=== PATIENT | male | born 2000 | race Caucasian/White ===

== ENCOUNTER 2021-05-20 07:27 | Observation (INO) | payer BC ==
[~2021-05-20] VITALS: Ht 182.9 cm; Wt 60.9 kg
[2021-05-20] MEDS ORDERED: DULOXETINE HCL60 MG PO (07:40)
[2021-05-20] MEDS ORDERED: CYCLOBENZAPRINE10 MG PO (07:40)
[2021-05-20] MEDS ORDERED: GABAPENTIN300 MG PO (07:40)
[2021-05-20] MEDS ORDERED: DICLOFENAC SODI75 MG PO (07:40)
--- NOTE | 2021-05-20 13:30 | NUR ---
PT REPORTING PAIN 09/27. IV DILAUDID ADMINSTERED. PRE-PROCEDURE CHECK LIST COMPLETED. CALL LIGHT IN REACH
--- NOTE | 2021-05-20 14:02 | NUR ---
PT ARRIVED TO FLOOR VIA STRETCHER. PT TRANSFERS SELF TO BED. LR BOLUS STARTED. MAINTAINENCE FLUIDES ON STANDBY. ASSESSMENT COMPLETED. ABDOMEN IS TENDER, AND PT REPORTS SOME BLOATING. PAIN AT 7/10. DILAUDID ADMISNTERED. CONSENT SIGNED. CALL LIGHT IN REACH
--- NOTE | 2021-05-20 14:50 | NUR ---
EDUCATED PT ON PRE-SURGICAL HIBICLEANS SHOWER, SHOWER SET UP, PT EDUCATED THAT SHOWER NEEDS TO BE COMPLETED BY 1600.
--- NOTE | 2021-05-20 15:23 | NUR ---
ROUNDED ON PT TO ASSESS PAIN. REPROTS PAIN 2/10 NOW. HELEN NEEDS. POLAN OF HIBACLENSE SHOWER BEFORE 1600. PT UNDERSTANDS POC.
--- NOTE | 2021-05-20 16:06 | NUR ---
pt did pre-surgical shower and provided a ua.
--- NOTE | 2021-05-20 16:12 | NUR ---
PAIN WELL CONTROLLED. PT ASSISTED TO HIBACLENSE SHOWER.
--- NOTE | 2021-05-20 17:20 | NUR ---
PT OFF FLOOR TO SURGERY
--- NOTE | 2021-05-20 18:45 | NUR ---
05/20/211844 Kerrie Yun 1839: PT ARRIVES TO RECOVERY ROOM COMBATIVE AND UNCONSOLABLE. HE TRIED TO RUB HIS EYE, GET OUT OF THE BED, AND FOUGHT OR, PUBLIC RELATIONS ACCOUNT EXECUTIVE, AND PACU STAFF.
--- NOTE | 2021-05-20 19:24 | NUR ---
PT ASLEEP IN BED. GRANDMOTHER AT BEDSIDE. NO FURTHER NEEDS AT THIS TIME.
--- NOTE | 2021-05-20 19:26 | NUR ---
PT ARRIVED TO FLOOR AT THIS TIME. SLEEPY, SS IN PLACE WITH SOME DRAINAGE. EDUCATED ABOUT NOT GETTING UP WITHOUT ASSISTANCE. PT ELINOR YATES AT BEDSIDE.
--- NOTE | 2021-05-20 19:30 | NUR ---
PT ARRIVES FROM SURGERY. VS COMPLETED. PT DROWSY, DENIES PAIN. IV FLUIDS INFUSING PER ORDER. NO OTHER NEEDS. FAMILY IN ROOM. CALL LIGHT IN REACH.
--- NOTE | 2021-05-20 19:45 | NUR ---
PT ARRIVED TO MS 118 FROM PACU WITH CARLOS HALE, RECEIVED REPORT. PT MOSTLY SLEEPY, LAYING ON LEFT SIDE, RESPONDS TO COMMANDS. RA, VS COMPLETED BY WASH WORKER'S, LAP SITES X [address], DRY DRAINAGE NOTED. PT ELINOR AT BEDSIDE, MILAN.
--- NOTE | 2021-05-20 20:30 | NUR ---
ASSESSMENT COMPLETED. PT STATES HE HAS 2/10 ABD PAIN, DENIES NEED FOR PAIN MEDS. PT IS DROWSY BUT ORIENTED. FAMILY IN ROOM. LUNGS CLEAR, HEART TONES REGULARCMS INTACT. IV WNL, CDI, FLUSHED WELL, IV FLUIDS INFUSING PER ORDER. SCDs ON. LAP SITES X4 WNL, SCANT SANGUINOUS DISCHARCH AT UMBILICUS SITE, STERI STRIPS FALLING OFF, AREA CLEANED WITH WATER AND STRIPS REPLACED. PT DENIES NAUSEA. PT DRINKING WATER A LITTLE. VS AND I&O COMPLETED. NO OTHER NEEDS AT THIS TIME. CALL LIGHT IN REACH.
--- NOTE | 2021-05-20 20:44 | NUR ---
PT. VITALS DONE. FRESH WATER PROVIDED. CALL LIGHT LEFT WITHIN REACH. NO OTHER IMMEDIATE NEEDS AT THIS TIME.
--- NOTE | 2021-05-20 21:50 | NUR ---
PT CALLED TO USE URINAL. ABLE TO SIT ON SIDE OF BED, SAID "THEY WERE NOT WRONG, IT DOESN'T HURT BAD NOW IT DID BEFORE. DENIED NAUSEA, PAIN, LIGHTHEADNESS. STOOD WELL. WILL USE URINAL, AND CALL WHEN DONE.
--- NOTE | 2021-05-20 23:57 | NUR ---
PT. POST-OP VITALS CHARTED. CALL LIGHT LEFT WITHIN REACH. NO OTHER IMMEDIATE NEEDS AT THIS TIME.
--- NOTE | 2021-05-21 01:20 | NUR ---
PATIENT I/OS AND VITALS CHARTED. FRESH ICE WATER PROVIDED. CALL LIGHT LEFT WITHIN REACH. PT. REFUSED NEEDING TO USE BR. NO OTHER IMMEDIATE NEEDS AT THIS TIME.
--- NOTE | 2021-05-21 02:15 | NUR ---
SCHEDULED MED PROVIDED. ASSESSMENT COMPLETED. LAP SITES WNL, SCANT SANGUINOUS DRAINAGE. PT DENIES PAIN. IV FLUIDS INFUSING PER ORDER. FAMILY IN ROOM. NO OTHER NEEDS. CALL LIGHT IN REACH.
--- NOTE | 2021-05-21 04:18 | NUR ---
PT IV PUMP ALARMING, RESOLVED. JELLO PROVIDED, PT TOLERATED WELL. NO OTHER NEEDS. CALL LIGHT IN REACH.
--- NOTE | 2021-05-21 05:19 | NUR ---
BP was 108/50. Map was 62. Patient requested to keep his BP cuff on his right arm. Call light is in reach.
--- NOTE | 2021-05-21 05:22 | NUR ---
Patient said he had a very long day yesterday and would like to rest.
--- NOTE | 2021-05-21 07:52 | NUR ---
Percocet one tab 7.5/325mg admin with food for reported 7/10 abd pain.
--- NOTE | 2021-05-21 09:39 | NUR ---
PATIENT AWAKE IN BED, GRANDMA IN ROOM. VITALS AND I&OS CHARTED. PATIENT HAS BEEN UP TO BATHROOM AND BACK. PATIENT ENCOURAGED TO AMBULATE TODAY. CALL LIGHT IN REACH.
--- NOTE | 2021-05-21 09:46 | NUR ---
Patient awake, alert and oriented x4. Patient reports he feels pretty well this morning, no nausea at this time. Pt states he is passing flatus, bowel tones active x4 quadrants. Patient up to chair for breakfast at this time.
[2021-05-21] MEDS ORDERED: NICOTINE PATCH1 EACH TD (10:18)
[2021-05-21] MEDS ORDERED: ACETAMINOPHEN500 MG PO (10:19)
[2021-05-21] MEDS ORDERED: OXYCODON-ACETA1 EAC2 PO (10:19)
[2021-05-21] MEDS ORDERED: IBUPROFEN600 MG PO (10:19)
--- NOTE | 2021-05-21 10:33 | NUR ---
MED REC COMPLETE
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
--- NOTE | 2021-05-21 12:07 | OR ---
[facility] [address], [place] [address] Signed DATE OF OPERATION: 05/20/2021 SURGEON: Jeremy Conley MD PREOPERATIVE DIAGNOSIS: Generalized peritonitis, acute appendicitis. POSTOPERATIVE DIAGNOSIS: Acute suppurative appendicitis with generalized peritonitis. PROCEDURE: Laparoscopic appendectomy. ANESTHESIA: General endotracheal, Brandon Seaman CRNA and local 10 mL of 0.25% Marcaine with epinephrine. INDICATION: This 21-year-old white man presented with severe generalized abdominal pain most dominantly in the right lower abdomen with marked tenderness and peritonitis. CT scan confirmed acute appendicitis. His symptoms began yesterday. His white count was elevated to 16,000. He is admitted at this time to undergo appendectomy preferred by laparoscopic approach. He understands the risks of bleeding, infection, need for open procedure, need for other indicated procedures and so. Of special note, he did present additionally with bilateral testicular pain, which initially prompted evaluation for nephrolithiasis, which of course was negative. FINDINGS: Generalized peritonitis was noted. Suppurative changes were noted throughout the abdomen including over the liver. Fibrinous exudative peel was noted in the region of the appendix itself which was anteriorly located. The appendix was markedly inflamed with suppurative changes but no sign of actual perforation. Complete appendectomy was performed without problem. The mesoappendix was additionally secured with clips to assure hemostasis. The small bowel, gallbladder and liver otherwise appeared normal. DESCRIPTION OF PROCEDURE: The patient was brought to the operating room, given a general endotracheal anesthetic. Preoperative antibiotic cefoxitin had been given. Sequential compression device stockings were used. Heparin subcutaneously administered. After satisfactory general Electronically Signed By: JEREMY CONLEY MD 05/21/21 1207 PATIENT NAME: RYLAND JAEGER OPERATIVE REPORT DATE OF : [birth year] REPORT #: [id number] PHYSICIAN: JEREMY CONLEY MD PCP: BETTY CONDE PA-C REPORT IS CONFIDENTIAL AND NOT TO BE RELEASED WITHOUT AUTHORIZATION [facility] [address], [place] [address] Signed endotracheal anesthesia, the left arm was placed at the side, and the abdomen was prepared with a chlorhexidine solution and draped sterilely. An infraumbilical incision was made, and using an open Karl cannula technique, the abdomen was entered and pneumoperitoneum achieved to a level of 14 mmHg of carbon dioxide gas. Intraabdominal inspection showed purulent exudate in the right lower quadrant as well as in the pericolic gutter on the right and in the subhepatic space to a degree. An epigastric 12 mm port was placed and a laparoscope replaced to that site. The right lower quadrant 5 mm port was then placed. With two hand manipulation, the inflamed appendix and some associated omentum was freed from the right lower quadrant anterior abdominal wall. A fibrinous exudate was noted. This was stripped free. It was explanted. The appendix was elevated and the area between the appendix and cecum well identified and using a small amount of electrocautery, a window created. An Endo ANA LILIA stapling device was used to transect the base of the appendix flush with the cecum. This left a remaining small amount of mesoappendix. This was divided with an Endo-ANA LILIA stapling device as well. Given the purulence noted with the appendix, the appendix placed in an endobag and extracted through the infraumbilical port site. Irrigation was undertaken in the right lower abdomen and the purulent material suctioned free as well. Additional suction was undertaken along the right paracolic gutter, the subhepatic space, and the area over the liver. Once complete clearance of the fluid was noted including that of the pelvis, plans were made for closure. The trocar was removed under direct visualization, showing no sign of bleeding. The infraumbilical fascial incision was reapproximated with interrupted 0 Vicryl suture. A 10 mL of 0.25% Marcaine with epinephrine was injected locally. The skin was then closed with interrupted 2-0 Vicryl, Steri-Strips were applied. The patient tolerated procedure well, was extubated and transferred to the recovery room in good condition having suffered no complications. Sponge, needle, and instrument counts were reported as correct x3. Jeremy Conley MD /MODL /[id number] cc: Jeremy Moore MD Electronically Signed By: JEREMY CONLEY MD 05/21/21 1207 PATIENT NAME: RYLAND JAEGER OPERATIVE REPORT DATE OF : [birth year] REPORT #: [id number] PHYSICIAN: JEREMY CONLEY MD PCP: BETTY CONDE PA-C REPORT IS CONFIDENTIAL AND NOT TO BE RELEASED WITHOUT AUTHORIZATION [address] [address] Signed Copies: ~ Electronically Signed By: JEREMY CONLEY MD 05/21/21 1207 PATIENT NAME: RYLAND JAEGER OPERATIVE REPORT DATE OF : [birth year] REPORT #: [id number] PHYSICIAN: JEREMY CONLEY MD PCP: BETTY CONDE PA-C REPORT IS CONFIDENTIAL AND NOT TO BE RELEASED WITHOUT AUTHORIZATION
--- NOTE | 2021-05-22 13:00 | PATH ---
[facility] [address] [facility] [place] [address] Signed SPECIMEN(S): A APPENDIX SPECIMEN SOURCE: A. APPENDIX CLINICAL HISTORY: Acute appendicitis. FINAL PATHOLOGIC DIAGNOSIS: Appendix, appendectomy: - Acute appendicitis. NAL:cml:C2NR MICROSCOPIC EXAMINATION: Histologic sections of all submitted blocks are examined by light microscopy. These findings, together with the gross examination, support the pathologic diagnosis. GROSS DESCRIPTION: The specimen, labeled "SK, appendix," is received in formalin and consists of Specimen: Appendix with mesoappendix. Dimensions: 6.5 x 0.8 cm. Serosa: Lutsen-red, focally congested and partially covered with yellow-taylor, adherent, plaque-like material. Defect: Not grossly identified. Inking: Staple line is inked black. Mucosa: Dark red and hemorrhagic. Fecalith: Not grossly identified. Additional: None. Lock Expert sections are submitted in cassette (A1). JS (under the direct supervision of a pathologist) The Gross Description was prepared using a voice recognition system. The report was reviewed for accuracy; however, sound-alike word errors, addition and/or deletions may occur. If there is any question about this report, please contact Client Services. PERFORMING LABORATORY: The technical component was performed by [employer], [address] [place] [address] (Preschool Aide: Agnieszka Stein MD; CLIA# [id number]). [facility], [address] [facility]. 107, PATIENT NAME: RYLAND JAEGER PATHOLOGY DATE OF : [birth year] REPORT #: [id number] PHYSICIAN: CHRISTINE LEIGH PCP: BETTY CONDE PA-C REPORT IS CONFIDENTIAL AND NOT TO BE RELEASED WITHOUT AUTHORIZATION [facility] [address] [facility] [place] [address] Signed [place] [address] (CLIA# [id number]). Diagnostician: Linda Edward MD Pathologist Electronically Signed 05/22/2021 Copies: ~ PATIENT NAME: RYLAND JAEGER PATHOLOGY DATE OF : [birth year] REPORT #: [id number] PHYSICIAN: CHRISTINE LEIGH PCP: BETTY CONDE PA-C REPORT IS CONFIDENTIAL AND NOT TO BE RELEASED WITHOUT AUTHORIZATION
== END 2021-05-21 11:45 | disposition home or self-care (01) ==
LOC: ED 07:27 → MS 07:30
PROVIDERS: ADMIT Surgery; ATTEND Surgery
DX: K35.20 Acute appendicitis with generalized peritonitis, without abscess (principal); Z20.822 Contact with and (suspected) exposure to COVID-19
CPT/HCPCS: 36415; 74176; 74177; 76870; 80053; 81001; 85025; 87088; 96365; 96366; 96372; 96375; 96376; 99285-25; C9803; G0378; J0131; J0330; J0694; J1100; J1170; J1644; J1885; J2001; J2405; J2704; J3010; J7030; J7121; U0003

== ENCOUNTER 2021-05-26 21:51 | Inpatient (IN) | payer BC ==
[~2021-05-26] VITALS: Ht 182.9 cm; Wt 57.2 kg
[~2021-05-26 21:51] MED LIST: ACETAMINOPHEN500 MG PO; CYCLOBENZAPRINE10 MG PO; DICLOFENAC SODI75 MG PO; DULOXETINE HCL60 MG PO; GABAPENTIN300 MG PO; IBUPROFEN600 MG PO; NICOTINE PATCH1 EACH TD; OXYCODON-ACETA1 EAC2 PO
--- NOTE | 2021-05-26 22:00 | NUR ---
PT AMBULATED TO ROOM [address] FOR [address] CONLEY, FEMALE FRIEND/RELATIVE WITH PT.
--- NOTE | 2021-05-26 22:31 | NUR ---
PT WAS SWABBED FOR COVID 19
--- NOTE | 2021-05-26 23:45 | NUR ---
DIRECT ADMIT FOR DR. CONLEY. ORDERS RECEIVED. PT ALERT AND ORIENTED. TO ROOM INDEPENDENTLY. RA. REPORTS ABD PAIN IS TOLERABLE. DENIES NAUSEA. ADMISSION ASSESSMENT COMPLETE. LAP SITES X 3 FROM LAP APPY 3/ HEALING WITH NO REDNESS OR DRAINAGE NOTED. BOWEL TONES ACTIVE. ABD SOFT. IV STARTED BY SUPERVISOR PILE DRIVING. IV BOLUS INFUSING PER ORDER. PT ORIENTED TO ROOM AND NURSE CALL LIGHT. DENIES QUESTIONS OR CONCERS AT THIS TIME. SUPERVISOR PILE DRIVING IN ROOM FOR ADMISSION.
--- NOTE | 2021-05-27 00:10 | NUR ---
IV ABX INFUSING WNL. PRN FOR 5/10 ABD PAIN ADMIN PER EMAR. CONSENT FOR SURGERY SIGNED AND RETURNED TO CHART. PT DENIES QUESTIONS OR CONCERNS. GIRLFRIEND TO STAY IN ROOM, LINENS PROVIDED. PT NPO AT THIS TIME. VERBALIZES UNDERSTANDING. NO FURTHER NEEDS. CALL LIGHT IN REACH.
--- NOTE | 2021-05-27 02:20 | NUR ---
VS AND I&O COMPLETE. PT DENIES NEEDS. REPORTS PAIN TOLERABLE. IVF INFUSING WNL.
--- NOTE | 2021-05-27 03:20 | NUR ---
PT RESTING ON RIGHT SIDE WITH EYES CLOSED. RESPIRATIONS EVEN. IV ABX COMPLETE.
--- NOTE | 2021-05-27 07:27 | NUR ---
SBA. PATIENT IS IN THE BATHROOM. ADVICED TO PULL THE BATHROOM CALL LIGHT WHEN DONE. GEOFFREY BAR NOTIFTIED.
--- NOTE | 2021-05-27 07:30 | NUR ---
Pt lives in [place] in a house. Denies needs. Lesley Baker is his emergency contact . Pt plans on dc to home when medically cleared after abcess is drained.
--- NOTE | 2021-05-27 07:41 | NUR ---
Patient up to restroom to void then back to bed. Pre procedure checklist completed. Patient updated with plan of care for surgery this morning, pt receptive. No current needs. Patient reports he slept well through the night. No current needs.
--- NOTE | 2021-05-27 10:16 | NUR ---
Patient off unit in surgery at this time.
--- NOTE | 2021-05-27 11:43 | NUR ---
05/27/21 1143 Ary Anderson 1136 PATIENT ARRIVES TO PACU SLEEPING. MOVING ARMS, TRYING TO SCRATCH AT EYES. ASST PATIENTS ARM BACK TO BED. PATIENT SLEEPING. RESP EVEN AND UNLABORED, MASK AT 6 LITERS.
--- NOTE | 2021-05-27 12:42 | NUR ---
Morphine 2mg ivp admin for 6/10 penile pain.
--- NOTE | 2021-05-27 12:53 | NUR ---
M/S STAFF INFORMED ME PT HAS BEEN TAKEN TO OR FOR SURGERY. WILL CHECK BCK
--- NOTE | 2021-05-27 12:56 | NUR ---
Patient arrived to medical floor from surgery. Patient a&ox4, no acute distress noted. Vital signs stable, sp02 100% on room air, respirations even and non labored. Morphine in use for pain, recent dose of 2mg ivp admin. Adb puncture sites x2 are CDI with steri strips. RADHA drain to left abd is intact/patent with sarosang drainage. Cont cpox intact. Patient oriented to room and call light. Bed alarm intact. Fresh water provided. IV infusing per provider order. Patient denies nausea at this time.
--- NOTE | 2021-05-27 14:50 | NUR ---
Patient resting, eyes closed, respirations even and non labored. Patient vital signs are stable. Right melvina drain has notable sarosang drainage, reinforced at this time. Other puncture sites are CDI. Patient has no notable distress. IV patent. SP02 100% at this time on room air.
--- NOTE | 2021-05-27 15:36 | NUR ---
Admin morphine 2mg ivp for reports of 5/10 abd pain.
--- NOTE | 2021-05-27 17:05 | NUR ---
PATIENT UP TO BATHROOM TO VOID, I/O AND VITALS DONE.
--- NOTE | 2021-05-27 17:22 | NUR ---
Order obtained from Dr. Medeiros for daily nicotine patch 14mg.
--- NOTE | 2021-05-27 17:31 | NUR ---
Motrin 600mg po admin with jello for reported 4/10 abd pain.
--- NOTE | 2021-05-27 19:25 | NUR ---
report received from emilie hale about this pt. he was in the OR today to have his abscess drainied, post op items completed. pt on clear diet at this time tolerating well. asking for more pain med, emilie HALE to medicate pt with morphine IV. call light in reach.
--- NOTE | 2021-05-27 19:27 | NUR ---
Morphine 2mg ivp admin for reports of 5/10 abd pain.
--- NOTE | 2021-05-27 19:45 | NUR ---
ASSISTED PT WITH SCDS AND CPOX DISCONNECT SO PT COULD USE THE BATHROOM, PT WILL CALL WHEN FINISHED
--- NOTE | 2021-05-27 21:20 | NUR ---
pt is reporting his pain is coming back near where his navel is. while during assessment noted steri strip to be dry intact to multiple sites. bowel town active. pt medicated with 4 mg morphine IV informed he also has oral tylenol and motrin ordered as well. pain is 7/10. gave pt his nine oclock meds. call light in reach. family at bedside. eating jello
--- NOTE | 2021-05-27 21:29 | NUR ---
PATIENT ASSESSMENT IS COMPLETE. PT HAS BEEN MEDICATED WITH ADDITIONAL MORHINE PER HIS PRN ORDER, WILL REASSESS. PT'S MOM AND SIGNIFICANT OTHER AT BEDSIDE. CALL LIGHT IN REACH.
--- NOTE | 2021-05-27 23:15 | NUR ---
IN ROOM TO START ANTIBIOTICS AND CHECK ON PT, HE IS REQUESTING MORE MEDICATION FOR PAIN, AND BECAUSE "I WANT TO SLEEP" EDUCATED THE PATIENT ABOUT USING MORPHINE AND GIVING TOO MUCH SO CLOSE TO GETHER ETC. PT VERBALIZED UNDERSTANDING. HAS BEEN GIVEN IV TORADOL AND "IT HELPS SOME" PT MEDICATED WITH 5 MG MORPHINE PER PRN ORDER. CALL LIGHT IN REACH. PT HAS SOME SLIGHT DARINAGE FROM STERISTRIPED LAP SITE ON LEFT LOWWER ABD, REINFORCED WITH DRY GAUZE
--- NOTE | 2021-05-28 01:31 | NUR ---
CALLED INTO ROOM MULTIPLE TIMES FOR THE IV BUMP BEEPING. ASSESSED IV SIT TO RIGHT ARM, IT IS PATENT FLUSHES NO INFILTRATION. PT THINKS MAYBE TUBE GOT "PULLED TIGHT OR SOMETHING" PUMP IS RUNNING, ABX CONTNIUES INFUSING
--- NOTE | 2021-05-28 02:15 | NUR ---
IN TO GET VITALS NO FURTHER NEEDS AT THIS TIME
--- NOTE | 2021-05-28 04:50 | NUR ---
IN TO GET VITALS, PT CALL LIGHT ON TO INFORM STAFF OF CPOX ALARMING, PT HAS NOT VOIDED YET, LET PT KNOW WE WILL CHECK BACK LATER, PT ALSO REQUESTING SOMETHING FOR PAIN, RN AWARE ON BOTH NEEDS, NO FURTHER NEEDS AT THIS TIME
--- NOTE | 2021-05-28 05:00 | NUR ---
PT UP TO USE TOILET THINKS HE MAY HAVE TO HAVE BM.
--- NOTE | 2021-05-28 05:30 | NUR ---
PATIENT BACK TO BED ASSESSMENT COMPLETE. PT MEDICATED WITH 6MG IV MORPHINE FOR COMPLAINTS OF INCREASED ABD PAIN AFTER GETING UP TO USE RESTROOM, STATES HE HAD A LOOSE BM. VOIDED 650 ML IN URINAL. WARM BLANKET APPLIED CALL LIGHT IN REACH
--- NOTE | 2021-05-28 08:00 | NUR ---
REPORT RECEIVED FROM NIGHT RN AND PT. CARE RESUMED. PT. IS ALERT AND ORIENTED AND C/O 4/10 ABDOMINAL PAIN THAT IS ACHING AND WORSE WITH ACTIVITY. ADMIN. IBUPROFEN. ABDOMIN IS SOFT AND NONDISTENDED. BOWEL TONES ACTIVE AND PT. HAD BM THIS MORNING. HE DENIES NAUSEA. PT. ENCOURAGED TO AMBULATE AND EDUCATED ABOUT RISKS OF LYING IN BED. HE REFUSES AT THIS TIME. IV WNL AN FLUSHES. FAMILY IN THE ROOM. LEFT RESTING WITH CALL LIGHT IN REACH.
--- NOTE | 2021-05-28 08:20 | NUR ---
MED REC COMPLETE
--- NOTE | 2021-05-28 10:08 | NUR ---
PATIENT UP TO AMBULATE TO THE END OF THE CONTRERAS WITH THIS GROUT PUMP OPERATOR AND HIS MOTHER. PATIENT TOLERATED WELL BUT WAS PAINFULL WHEN RETURNING TO HIS ROOM. RADHA DRAINED, GOWN AND LINEN CHANGED. FRESH ICE WATER AND BROTH PROVIDED. FAMILY IN ROOM. SCDS ON BOTH LEGS. CALL LIGHT IN EASY REACH.
--- NOTE | 2021-05-28 11:13 | NUR ---
PT SITTING UP IN BED, NO REQUESTS AT THIS TIME. ABX STARTED, LR INFUSING. PT ATE 100% POPSICLE. CALL LIGHT WITHIN REACH, MOTHER AT BEDSIDE. REQUESTING TO SEE SURGEON.
--- NOTE | 2021-05-28 11:54 | NUR ---
DR CONLEY IN TO ROOM TO SEE PT. REQUESTING CYMBALTA RX BE RESTARTED IMMEDIATELY. DIET ADVANCED TO REGULAR, LUNCH TRAY ORDERED. PT AMBULATED TO BATHROOM WITHOUT ISSUE, VOIDED URINE, NO BM. RADHA DRAIN REMAINS IN PLACE, DRAINING SANGUINOUS FLUID. PT SITTING UP IN BED, GIRLFRIEND AT BEDSIDE. NO OTHER REQUESTS AT THIS TIME.
--- NOTE | 2021-05-28 13:59 | NUR ---
PT LAYING IN BED, MOTHER HAS JUST ENTERED. PT PLEASANT, SAID HE WAS TIRED. PAIN TOLERABLE AT 3, SLIGHT NAUSEA. PT THANKED ME FOR THE VISIT, GAVE PT A BLESSING AND WILL FOLLOW
--- NOTE | 2021-05-28 13:59 | NUR ---
PT ATE APPROX 25% OF HIS LUNCH, TOOK A SHORT NAP, AND WOKE UP VOMITING X1. PT IN TO BATHROOM WITHOUT ASSISTANCE AND BACK TO BED. IV ZOFRAN GIVEN AND LINE FLUSHED. SCD'S ON, PT SITTING UP IN BED, CALL LIGHT WITHIN REACH. PT ON CELL PHONE, HAS NO REQUESTS AT THIS TIME.
--- NOTE | 2021-05-28 14:54 | NUR ---
IN TO CHECK ON PT, WHO IS SLEEPING. MOTHER AT BEDSIDE. RESPIRATIONS EVEN AND UNLABORED.
--- NOTE | 2021-05-28 16:08 | NUR ---
IN TO CHECK ON PT, WHO IS SLEEPING, RESPIRATIONS EVEN AND UNLABORED. PT'S MOTHER SLEEPING IN CHAIR AT BEDSIDE. WILL WAIT TO REASSESS ABD WOUNDS WHEN 1700 ABX IS DUE.
--- NOTE | 2021-05-28 16:46 | NUR ---
IN TO ASSESS PT'S SURGICAL SITES. DRESSING AROUND RADHA DRAIN HAS SOME LIGHT SEROSANGUINOUS DRAINAGE NOTED. LAP INCISION SITES APPEAR CLEAN DRY, STERI STRIPS INTACT, NO DRAINAGE NOTED. PT HAS ACTIVE BOWEL TONES, AND REPORTS DIARRHEA X1 THIS AM. RADHA DRAIN HAS SMALL AMOUNT OF SEROSANGUINOUS DRAINAGE. PT SLEEPING PRIOR TO ASSESSMENT, IS EASY TO WAKE, AND EASY TO FALL BACK TO SLEEP. RESPIRATION EVEN AND UNLABORED.
--- NOTE | 2021-05-28 18:10 | NUR ---
DINNER TRAY IN ROOM, PT REPORTS THE SMELL MADE "ME SICK TO MY STOMACH", REPORTS SOME NAUSEA AND 6/10 PAIN. TRAY REMOVED FROM ROOM. PT REQUESTED AND GIVEN SPRITE AND CRACKERS. STATES HE HAS ALLERGY TO TOMATOES, WHICH WAS ADDED TO HIS LIST OF ALLERGIES. NO OTHER NEEDS/REQUESTS AT THIS TME.
--- NOTE | 2021-05-28 18:42 | NUR ---
CALLED RE RECURRENT NAUSEA WITH FOOD. PER DR CONLEY, RESTRICT DIET BACK TO CLEAR LIQUIDS, GIVE 12.5MG PHENERGAN IV ONCE. VRBO.
--- NOTE | 2021-05-28 21:50 | NUR ---
IN TO GET VITALS WITH RN, PT ASSISTED OOB TO USE THE URINAL, BACK TO BED, WARM BLANKET PROVIDED, SCDS IN PLACE, WATER FILLED
--- NOTE | 2021-05-28 22:00 | NUR ---
ON ROOM AIR, SBA, UP TO BR, VOIDED QS, C/O ABD PAIN, MEDICATED WITH TYLENOL AT HIS REQUESTS. TOLERATING LIQUIDS, STAED HE WAS FEELING NAUSEATED EARLIER OK NOW. IVF INFUSING RFA, 3 ABD LAP SITES WITH OLD DRAINAGE. SLIGHT DISTENTION OVERALL ABD. HEA, RADHA RLQ WITH SS DRAINAGE. PATENT, TEACHING DONE. RECEPTIVE. CALL LIGHT AND FLUIDS T BEDSIDE,
--- NOTE | 2021-05-28 23:54 | NUR ---
RESTING, LAYING ON HIS LEFT SIDE, IVF INFUSING, NO FURTHER S/SX ABDPAIN. NO N/V
--- NOTE | 2021-05-29 01:50 | NUR ---
RESTING, REPOSISIONS SELF IN BED, IVF INFUSING W/O PROBLEMS. FEMALE FRIEND IN ROOM
--- NOTE | 2021-05-29 05:10 | NUR ---
pt has slept this am, on room air, clear lungs, no sob with exertion. c/o abd pain and has been medicated with motrin at this time and tylenol earlier on the shift. 3 R abd lap sites withold drainage, slight abd distention, hea, stated passing gas. RADHA patent. teacahing done and hands on w pt. no further c/o n/v or emesis this shift. uses call light, up to br several times with SBA, voising QS. family at bedside. alert, oriented, pleasant and cooperative.fresh fluids at bedside
--- NOTE | 2021-05-29 08:14 | NUR ---
PT UP TO BATHROOM FOR VOID OF URINE. PT MORE ALERT, CALM THIS MORNING, REQUESTING TO GO FOR A WALK AROUND THE UNIT, PT TOLERATED WELL. REQUESTED AND GIVEN COFFEE. DENIES NAUSEA, REPORTS 3/10 TOLERABLE PAIN. ABD APPEARS MILDLY DISTENDED, PT REPORTS PASSING GAS. RADHA DRESSING CHANGED. PT REPORTS EMPTYING RADHA WITHOUT ASSISTANCE, TOLERATED WELL. BOWEL TONES ACTIVE, WOUND SITES CLEAN/DRY/STERI STRIPS INTACT. PT SITTING UP IN BED, WATCHING TV, NO REQUESTS AT THIS TIME.
--- NOTE | 2021-05-29 09:11 | NUR ---
PATIENT AWAKE IN BED WORKING ON BREAKFAST. PATIENT IS IN [employer] HAS BEEN UP AMBULATING CONTRERAS WITH RN THIS MORNING. G/F IN ROOM. VITALS CHARTED AND RADHA EMPTIED. CALL LIGHT IN EASY REACH
--- NOTE | 2021-05-29 09:44 | NUR ---
PT UP TO BATHROOM, VOID ONLY. PT NOW WALKING AROUND UNIT. GAIT STEADY. REPORTS MILD ABD PAIN.
--- NOTE | 2021-05-29 10:49 | NUR ---
IN TO PT'S ROOM TO ASSESS RADHA DRAIN THAT HAS CLOT NEAR THE INSERTION SITE. TUBING STRIPPED, PT TOLERATED WELL, NEW OPSITE DRESSING PLACED OVER. PT SITTING UP IN BED PLAYING CARDS WITH HIS MOTHER, NO OTHER REQUESTS AT THIS TIME.
--- NOTE | 2021-05-29 11:58 | NUR ---
PT ALERT, ORIENTED AND SITTING UP IN BED PLAYING CARDS WITH HIS MOTHER AND EATING A POPCICLE. PT SAYS HE FEELS MUCH BETTER. THANKED ME FOR COMING BY, WILL FOLLOW NEEDED
--- NOTE | 2021-05-29 12:30 | NUR ---
PT'S MOTHER AND GIRLFRIEND AT BEDSIDE, PT SITTING UP EATING LUNCH. NO ACUTE SIGNS OF DISTRESS, PT REPORTS MILD 1-2/10 PAIN. PT EAGER TO WALK MUCH POSSIBLE TODAY. NO REQUESTS AT THIS TIME.
--- NOTE | 2021-05-29 14:30 | NUR ---
PT SITTING UP IN BED, PLAYING CARDS WITH HIS MOTHER, PT SMILING, APPEARS RELAXED AND COMFORTABLE. PT REPORTS HE ATE APPROX 25% OF HIS LUNCH, BUT THEN BEGAN TO HAVE SOME "GURGLING" SO HE STOPPED EATING. DENIES HUNGER AT THIS TIME. PT IS DRINKING PLENTY OF FLUIDS. REPORTS HE WILL BE GOING FOR A LONG WALK AFTER HIS CARD GAME. PT DOES HAVE SOME SLIGHT ABD DISTENSION AND REPORTS HE HAS NOT HAD A BM TODAY, NOR PASSED GAS IN THE PAST FEW HOURS. PT ANTICIPATING A WALK AROUND THE DEPT WILL HELP INITIATE A BM. PT HAS NO OTHER REQUESTS OR NEEDS AT THIS TIME.
--- NOTE | 2021-05-29 17:30 | NUR ---
ADMIN. P.OTirso MARTINEZ. PT. WAS ASLEEP AND AWAKENS EASILY TO VOICE. HE DENIES PAIN. ASSISTED WITH SETTING UP DINNER TRAY. LEFT EATING WITH CALL LIGHT IN REACH.
--- NOTE | 2021-05-29 20:11 | NUR ---
on room air. pleasant, alert, oriented, cooperative. lungs clear bilat. nicotine patch removed. 3 abd lap sites intact, RADHA with small amount of ss drainage, abd tender, less distention, passing gas, no bm today. medicated with Tylenol 1000mg po per abd pain. tolerating liquids well,no emesis. voiding qs, SCDS off as pt is independent and walking in hallways and in room. uses call light,
--- NOTE | 2021-05-29 22:35 | NUR ---
RESTING, EYES CLOSED, NO DISTRESS, ON ROOM AIR, IVF INFUSING, CALL LIGHT AND FLUIDS AT BEDSIDE
--- NOTE | 2021-05-30 00:25 | NUR ---
awake, c/o abd pain, medicated with Motrin per 5/10 abd pain. 3 lap sites intact, melvina with very scant amount of ss drainage.no emesis, voiding qs visiting with female friend,
--- NOTE | 2021-05-30 02:00 | NUR ---
RESTING, AWAKES EASILY, NO C/O PAIN. IVF INFUSING, FAMILE AT BEDSIDE
--- NOTE | 2021-05-30 05:01 | NUR ---
Pt on room air, up to BR, voiding QS, had bm, back to bed SBA. C/o abd pain medicated with Tylenol, abd lap sites intact, RADHA with scant amount of ss drainage. IVF infusing w/o problems. Pt pleasant, alert, oriented, states he feels much better. uses call light, tolerating liquids well, no emesis. family in room
--- NOTE | 2021-05-30 08:15 | NUR ---
PT REPORTS HE HAD A GOOD NIGHT, WAS ABLE TO SLEEP COMFORTABLY, REPORTS PASSING GAS AND HAD BM. PT'S ABDOMEN SLIGHTLY DISTENDED WITH 1/10 TOLERABLE PAIN. INCISION SITES CLEAN, DRY, STERI STRIPS IN PLACE. RADHA DRAIN IN PLACE, DRAINING VERY SMAL AMOUNT SEROSANGUINOUS FLUID, PT MAINTAINING DRAIN WITHOUT ISSUE. PT REQUESTING BREAKFAST, AND THEN REPORTS HE WILL BE READY TO WALK AROUND THE DEPT. PT HAS NO REQUESTS AT THIS TIME. CALL LIGHT WITHIN REACH.
--- NOTE | 2021-05-30 09:58 | NUR ---
GAVE ORDER TO D/C IVF FOR PT AT THIS TIME. POSSIBLE D/C HOME TODAY
[2021-05-30] MEDS ORDERED: METRONIDAZOLE250 MG PO (10:03)
[2021-05-30] MEDS ORDERED: CIPROFLOXACIN500 MG PO (10:03)
[2021-05-30] MEDS ORDERED: NICOTINE PATCH1 EACH TD (10:03)
--- NOTE | 2021-05-30 10:59 | NUR ---
PT DISCHARGED HOME WITH HIS MOTHER AND GIRLFRIEND. PT DECLINED TO SPEAK WITH PHARMACY PRIOR TO DC. BELONGINGS GATHERED, AND SENT HOME WITH PT. IV DC'D BY SENIOR WEB ENGINEER, TIP INTACT. AT TIME OF DC, PT ALERT, ORIENTED, AND STABLE. PT ABLE TO DEMONSTRATE AND VERBALIZE HOW TO CARE FOR RADHA DRAIN, WHEN TO HAVE IT REMOVED BY DR CONLEY, HOW TO ASSESS FOR INFECTION, AND WHEN TO RETURN TO ED. ALL QUESTIONS ANSWERED. PT LEFT VIA WHEELCHAIR, BY SENIOR WEB ENGINEER. PT'S GIRLFRIEND WILL BE DRIVING HIM HOME.
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
--- NOTE | 2021-05-31 16:30 | DS ---
[facility] [address] [place], [place] [address] Signed ADMISSION DATE: 05/26/2021 DISCHARGE DATE: 05/30/2021 REASON FOR ADMISSION: This 21-year-old white man presented with severe generalized abdominal pain on May 20, 2021, and was found to have suppurative appendicitis, undergoing appendectomy without problem. The patient was noted to have developed since his discharge increasing pain in the low abdomen, poor ability to eat and so on. He was evaluated by me in my office on May 26, [address] scan was performed, which confirmed clinical suspicion of intra-abdominal abscess in the pelvis. He is admitted for further evaluation and care. PERTINENT PHYSICAL EXAMINATION: GENERAL: Showed a thin white man who look to be uncomfortable in appearance but not systemically toxic. HEENT: Trachea is midline. CHEST: Clear. HEART: Regular without murmur. ABDOMEN: Nondistended. He has significant tenderness at the umbilicus and to a lesser degree in the lower abdomen. CT scan showed a well-formed fluid collection in the pelvis somewhat in a horseshoe configuration extends from the right lower quadrant to the left lower quadrant dominantly in the low pelvis. HOSPITAL COURSE: He was given fluid resuscitation, IV antibiotic meropenem and underwent operation on May 27, 2021, including laparoscopy with debridement of fibrinous peel and abscess wall lysis of interloop adhesions by blunt dissection. Irrigation and drainage of the pelvic abscess and placement of a Jimbo drain. Broad-spectrum antibiotics were maintained postoperatively. He had marked improvement rather promptly. He was transitioned to oral antibiotics Cipro and Flagyl and his usual psychiatric medications reestablished as well. By the time of discharge, he is ambulating well, tolerating a regular diet, requiring only Tylenol for pain. The cultures obtained at the time of operation are still pending. Gram stain did show gram-positive cocci. The drainage from the pelvic drain at this point is rather minimal in amount, but will be left in place. FOLLOWUP PLAN: He will return to see me in approximately two weeks for drain removal. Electronically Signed By: JEREMY CONLEY MD 05/31/21 1630 PATIENT NAME: RYLAND JAEGER DISCHARGE SUMMARY DATE OF : [birth year] REPORT #: [id number] PHYSICIAN: JEREMY CONLEY MD PCP: BETTY CONDE PA-C REPORT IS CONFIDENTIAL AND NOT TO BE RELEASED WITHOUT AUTHORIZATION [facility] [address] [place], [place] [address] Signed DISCHARGE MEDICATIONS: Will include: 1. Cipro 500 mg p.o. b.i.d., #10. 2. Flagyl 250 p.o. t.i.d., #15. 3. Nicotine patch 14 mg daily, #30. 4. He will continue home medications of gabapentin 300 mg p.o. b.i.d., duloxetine 60 mg p.o. daily, cyclobenzaprine 10 mg p.o. b.i.d., ibuprofen 600 mg p.o. q.6 hours as needed for pain and Tylenol 500 mg two tablets p.o. q.6 hours as needed for pain. DISCHARGE DIAGNOSES: 1. Pelvic abscess secondary to suppurative nonperforated appendicitis a week prior. 2. Status post laparoscopy with drainage of pelvic abscess, interloop adhesion, debridement and irrigation. 3. Suppurative appendicitis May 20, 2021, status post laparoscopic appendectomy. 4. Anxiety disorder. 5. Nicotine addiction. MD WILLIAN Torre/MODL /[id number] cc: FARHAT Graff Copies: ~ Electronically Signed By: JEREMY CONLEY MD 05/31/21 1630 PATIENT NAME: RYLAND AJEGER DISCHARGE SUMMARY DATE OF : [birth year] REPORT #: [id number] PHYSICIAN: JEREMY CONLEY MD PCP: BETTY CONDE PA-C REPORT IS CONFIDENTIAL AND NOT TO BE RELEASED WITHOUT AUTHORIZATION
--- NOTE | 2021-05-31 16:30 | OR ---
[facility] [address], [place] [address] Signed DATE OF OPERATION: 05/27/2021 SURGEON: Jeremy Conley MD PREOPERATIVE DIAGNOSES: 1. Deep pelvic abscess. 2. History of laparoscopic appendectomy for suppurative nonperforated appendicitis on May 20, 2021. POSTOPERATIVE DIAGNOSES: 1. Deep pelvic abscess. 2. History of laparoscopic appendectomy for suppurative nonperforated appendicitis on May 20, 2021. 3. Interloop fibrinous peel as well as discrete abscess cavity in lowest portion of pelvis. PROCEDURES: 1. Laparoscopy with debridement of fibrinous peel including abscess wall. 2. Lysis of interloop adhesions (blunt dissection). 3. Drainage of the pelvis abscess and placement of drain. 4. extensive peritoneal lavage ANESTHESIA: General endotracheal, Brandon Seaman, FRYER OPERATOR and local 20 mL of 0.25% Marcaine with epinephrine. INDICATION: This 21-year-old white man underwent laparoscopic appendectomy by me on May 20, 2021, for acute suppurative appendicitis. Quite marked inflammatory change and purulence were noted with the appendix, but there was no sign of perforation. Operation went without problem. Yesterday, the patient was complaining of rather significant lower abdominal pain, poor appetite, and was a bit tachycardic. I evaluated him at the end of the day in the office and an outpatient CT scan was performed, which confirmed suspicion of possible pelvic abscess. He has been fluid resuscitated, given intravenous antibiotic meropenem, and now to undergo drainage of the pelvic abscess and other indicated procedures. A laparoscopic approach would be preferable. He understands the risks of bleeding, infection, need for open procedure, need for delayed problems including bowel obstruction from adhesions and so forth and wishes to proceed. Electronically Signed By: JEREMY CONLEY MD 05/31/21 1630 PATIENT NAME: RYLAND JAEGER OPERATIVE REPORT DATE OF : [birth year] REPORT #: [id number] PHYSICIAN: JEREMY CONLEY MD PCP: BETTY GRAHAM PA-C REPORT IS CONFIDENTIAL AND NOT TO BE RELEASED WITHOUT AUTHORIZATION [facility] [address], [place] [address] Signed FINDINGS: Interloop fibrinous adhesions were noted in the lower pelvis as well as the lower abdomen. Ultimately, a discrete pelvic abscess could be identified in the lower most portion of the pelvis. This required complete mobility of all of small bowel laparoscopically. There was no evidence of bile contamination within the abdomen to suggest perforation. No sign of bowel injury. No leakage at the staple line. No sign of Meckel's diverticulum or other issue. Most likely, his abscess was related to infected fluid settling in the deepest portion of the pelvis. Debridement of the abscess cavity wall was undertaken and all small bowel loops were freed of interloop adhesions to allow for good visualization of the pelvis. The sigmoid colon was normal. The cecum was otherwise normal. Copious irrigation was undertaken and a 7-mm flat Jimbo drain placed through the right lower quadrant previous trocar site and situated along the area of the cecum extending deep into the pelvis into the abscess cavity. DESCRIPTION OF PROCEDURE: The patient was brought to the operating room, given a general endotracheal anesthetic. Preoperative antibiotic meropenem had been given. Sequential compression device stockings used and heparin subcutaneously administered. The abdomen was palpated. Once the patient was asleep showing no sign of palpable mass. A Pineda catheter was placed without problem. The abdomen was prepared with a chlorhexidine solution and draped sterilely. An infraumbilical incision was made at the site of the previous trocar site. Dissection through the subcutaneous tissue without problem showing a wound typical of 7 days postop. The abdomen was entered. There was no evidence of generalized purulence. The Karl cannula was placed. Pneumoperitoneum achieved to a level of 14 mmHg with carbon dioxide gas. Intra-abdominal inspection showed inflammatory changes to the bowel in the lower part of the abdomen. Dense omental adhesions to the lower abdomen were noted as well. Under direct visualization, a 12-mm port was placed in the previous epigastric port under direct visualization, the cannula replaced to that site. Evaluation with laparoscope as well as single handed manipulation with a bowel grasper showed the cecum to be intact-- no sign of blowout or infarction in that area. Dense fibrinous adhesions were noted extending along the pelvic sidewall in that area. Notably, the cecum was low positioned as was noted at the initial operation. A 5-mm port was placed in the left lower quadrant. Two handed dissection was undertaken and there were found to be interloop dense adhesions, which were broken down with extreme care using blunt dissection. In the lowest part of the abdomen, trending towards the pelvis were fibrinous interloop adhesions, which were gently and debrided as appropriate to be passed as the final pathology. [place] of inflammatory Electronically Signed By: JEREMY CONLEY MD 05/31/21 1630 PATIENT NAME: RYLAND JAEGER OPERATIVE REPORT DATE OF : [birth year] REPORT #: [id number] PHYSICIAN: JEREMY CONLEY MD PCP: BETTY GRAHAM PA-C REPORT IS CONFIDENTIAL AND NOT TO BE RELEASED WITHOUT AUTHORIZATION [facility] [address] [facility] [place] [address] Signed proteinaceous capsular adhesion tissue was carefully debrided, progressively freeing the bowel loops. Adhesions to the anterior abdominal wall, particularly in the area of the bladder, were broken down with blunt dissection with all due care and copious irrigation undertaken. The sigmoid colon appeared normal and was followed down to the depths of the pelvis. Interloop fibrinous peel was debrided and taken back, but there was no finding of localized fluid collection in those areas. Much bowel was freed of interloop fibrinous and fibrofatty material, it is deemed most advisable to fully free the small bowel as he would have a high hazard of interloop bowel obstruction in the future. Starting at the cecum, which was again well identified, the ileum was identified by the antimesenteric fat pad of Petere. The small bowel was gently manipulated extending from the terminal ileum proximally gently dividing and freeing interloop filmy adhesions and progressing more proximally. Extreme care was taken to avoid any enterotomies. There was no evidence of bile staining or anything to suggest perforated bowel as a cause of his abscess. Once the bowel was completely and totally freed up, the bowel could be withdrawn from the pelvis, more fully examining the area inferior to the sacral promontory. The sigmoid colon was gently reflected out of the way and in the very depths of the pelvis there was clear evidence of an abscess cavity. The fluid in this area was collected for specimen with the use of a Luki tube. The espinoza of the well-formed abscess cavity were debrided and passed off specimen as well. Copious irrigation was undertaken with containing saline solution. The small bowel was maintained in a cephalad position. Through a previous right lower quadrant, 5-mm port site, a 7-mm flat Jimbo drain was manipulated into the pelvis. Not mentioned previously was the placement of a left lower quadrant 5 mm port to allow for 2 hand manipulation as well. Once the drain was situated in the appropriate area, the small bowel was returned to its natural anatomic position and considerable amount of irrigation fluid used to "float" the bowel allowing a more natural positioning of it ultimately. The drain was attached to the skin with nylon suture. Excess irrigation fluid was suctioned free. The trocars were ultimately removed after placing omentum over the abdominal viscera. None of the trocar sites showed any sighns of bleeing or other problems. The infraumbilical fascial incision was reapproximated with interrupted 0 Vicryl suture as well as a running 0 PDS suture. The epigastric 12-mm port was reapproximated with interrupted 0 Vicryl. All skin areas were secured with interrupted 3-0 Vicryl after application of 20 mL of 0.25% Marcaine with epinephrine. Steri-Strips were applied. The drain was attached to bulb suction showing a light pink fluid. The patient was ultimately extubated and transferred to the recovery room in good condition, having suffered no complication. Sponge, needle, and instrument counts reported as correct x3. It took approximately 2.5 hours, but was Electronically Signed By: JEREMY CONLEY MD 05/31/21 1630 PATIENT NAME: RYLAND JAEGER OPERATIVE REPORT DATE OF : [birth year] REPORT #: [id number] PHYSICIAN: JEREMY CONLEY MD PCP: BETTY GRAHAM PA-C REPORT IS CONFIDENTIAL AND NOT TO BE RELEASED WITHOUT AUTHORIZATION [address] [address] Signed accomplished safely. Jeremy Conley MD JM/MODL /[id number] cc: Betty Graham [facility] Copies: ~ Electronically Signed By: JEREMY CONLEY MD 05/31/21 1630 PATIENT NAME: RYLAND JAEGER OPERATIVE REPORT DATE OF : [birth year] REPORT #: [id number] PHYSICIAN: JEREMY CONLEY MD PCP: BETTY GRAHAM PA-C REPORT IS CONFIDENTIAL AND NOT TO BE RELEASED WITHOUT AUTHORIZATION
== END 2021-05-30 10:50 | disposition home or self-care (01) | DRG 856 ==
LOC: MS 21:51
PROVIDERS: ADMIT Surgery; ATTEND Surgery
PROC: 0DBW4ZZ Excision of Peritoneum, Percutaneous Endoscopic Approach (ICD-10-PCS; principal; 2021-05-27 09:30)
DX: T81.43XA Infection following a procedure, organ and space surgical site, initial encounter (principal); K65.1 Peritoneal abscess; Z20.822 Contact with and (suspected) exposure to COVID-19; F41.9 Anxiety disorder, unspecified; F17.200 Nicotine dependence, unspecified, uncomplicated; Y83.8 Other surgical procedures as the cause of abnormal reaction of the patient, or of later complication, without mention of misadventure at the time of the procedure
CPT/HCPCS: 00840; 36415; 80053; 85025; 87070; 87075; 87205; A9270; C9803; J0131; J0330; J1100; J1644; J1885; J2001; J2185; J2270; J2405; J2550; J2704; J3010; J7121; U0003

== ENCOUNTER 2021-08-13 14:32 | Emergency (ER) | payer OTHER ==
[~2021-08-13] VITALS: Ht 182.9 cm; Wt 57.1 kg
[~2021-08-13 14:32] MED LIST changes: +CIPROFLOXACIN500 MG PO; +METRONIDAZOLE250 MG PO
--- OUTSIDE RECORDS SUMMARY | 2021-08-13 14:36 | XMS ---
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 EFareed VISIT COUNT (12 MO.) 2 [facility] TOTAL 2 NOTE: Visits indicate total known visits. ED/UCC VISIT TRACKING (12 MO.) 08/13/2021 14:33 [facility] OR TYPE: Emergency COMPLAINT: - RAPID HEART RATE 05/20/2021 07:29 [facility] [place] TYPE: Emergency COMPLAINT: - TESTICLE PAIN, ABD PAIN, VOMITING, UNABLE URINATE INPATIENT VISIT TRACKING (12 MO.) 05/26/2021 21:51 [facility] [place] TYPE: Medical Surgical COMPLAINT: - PELVIC ABSCESS DIAGNOSES: - Peritoneal abscess - Anxiety disorder, unspecified - Other surgical procedures as the cause of abnormal reaction of the patient, or of later complication, without mention of misadventure at the time of the procedure - Nicotine dependence, unspecified, uncomplicated - Other surgical procedures as the cause of abnormal reaction of the patient, or of later complication, without mention of misadventure at the time of the procedure - Infection following a procedure, organ and space surgical site, initial encounter - Infection following a procedure, organ and space surgical site, initial encounter - Contact with and (suspected) exposure to COVID-19 - Anxiety disorder, unspecified - Nicotine dependence, unspecified, uncomplicated 05/20/2021 07:30 [facility] OR TYPE: Observation COMPLAINT: - APPENDICITIS DIAGNOSES: - Contact with and (suspected) exposure to COVID-19 - Acute appendicitis with generalized peritonitis, without abscess [email or web address]
--- NOTE | 2021-08-14 13:44 | EKG ---
[facility] [address] [facility] [place] [address] Signed Normal sinus rhythm Rightward axis Borderline ECG No previous ECGs available Confirmed by DEVYN MILLIGAN MD ([id number]) on 08/14/2021 1:44:09 PM Electronically Signed By: DEVYN MILLIGAN MD 08/14/21 1344 PATIENT NAME: RYLAND JAEGER Electrocardiogram DATE OF : [birth year] PHYSICIAN: DEVYN MILLIGAN MD REPORT #: [id number] REPORT IS CONFIDENTIAL AND NOT TO BE RELEASED WITHOUT AUTHORIZATION
== END 2021-08-13 16:54 | disposition home or self-care (01) ==
LOC: ED 14:32
DX: R00.2 Palpitations (principal); Z88.8 Allergy status to other drugs, medicaments and biological substances
CPT/HCPCS: 36415; 80048; 83735; 84443; 85025; 93005; 93010; 99285-25